=== PATIENT | female | born 1985 | race Hispanic/Latino ===

== ENCOUNTER 2016-07-10 10:14 | Emergency (ER) | payer OTHER ==
[2016-07-10 10:30] VITALS: BP 116/74; PULSE 82; O2SAT 99
[2016-07-10 10:43] VITALS: RESP 22; TEMP 98
[2016-07-10] MEDS ORDERED: Sodium Chloride 0.9% 500 ML IV ONE (10:58)
--- NOTE | 2016-07-10 11:09 | ED PDOC ---
HPI: General Adult Time Seen by Provider: 07/10/16 10:56 Chief Complaint (Nursing): Flu-like Symptoms History Per: Patient History/Exam Limitations: no limitations Onset/Duration Of Symptoms: Days (3) Additional Complaint(s): 30 yo F with history of depression presents to ED with complaints of myalgias, fever, lightheadedness x 3 days. Patient states was in usual state of health until Sunday. On Sunday, patient began with symptoms of myalgias and fever ( 101). Patient states treatment with alternating Tylenol and ibuprofen. Patient states improved on Sunday though still with tactile fevers. What prompted ED visit was feelings of lightheadedness this morning when arising from bed. Patient states associated symptoms include nasal congestion, intermittent dry cough due to post-nasal drip, and decrease in appetite. Denies nausea, vomiting , abdominal pain, vision changes, urinary symptoms, diarrhea, or sick contacts. Did not get flu vaccination this year. Works at medical facility with the elderly. LMP: 1 wk ago, normal. PMD: Other in [facility] Past Medical History Vital Signs: Last Vital Signs Temp 98.0 F 07/10/16 10:37 Pulse 82 07/10/16 10:37 Resp 22 07/10/16 10:37 BP 116/74 07/10/16 10:37 Pulse Ox 99 07/10/16 12:24 - Medical History PMH: Anxiety - Family History Family History: States: No Known Family Hx - Home Medications Home Medications: Ambulatory Orders Medication Instructions Recorded Citalopram Hydrobromide [Celexa] 10 mg PO DAILY 07/10/16 Oseltamivir [Tamiflu] 75 mg PO BID #10 cap 07/10/16 - Allergies Allergies/Adverse Reactions: Allergies Allergy/AdvReac Type Severity Reaction Status Date / Time No Known Allergies Allergy Verified 07/10/16 10:36 Review of Systems ROS Statement: Except As Marked, All Systems Reviewed And Found Negative Constitutional: Positive for: Fever, Malaise Cardiovascular: Negative for: Chest Pain Gastrointestinal: Negative for: Vomiting, Diarrhea Musculoskeletal: Positive for: Other (myalgias) Neurological: Positive for: Other (lightheadedness) Physical Exam - Reviewed Nursing Documentation Reviewed: Yes Vital Signs Reviewed: Yes - Physical Exam Appears: Positive for: Well, Non-toxic, No Acute Distress Head Exam: Positive for: ATRAUMATIC, NORMAL INSPECTION, NORMOCEPHALIC Skin: Positive for: Normal Color, Warm, Dry Eye Exam: Positive for: Normal appearance, EOMI ENT: Positive for: Normal ENT Inspection, Pharynx Is (clear), TM Is/Are (non- erythematous). Negative for: Pharyngeal Erythema, Tonsillar Exudate, Tonsillar Swelling Neck: Positive for: Normal, Painless ROM, Supple Cardiovascular/Chest: Positive for: Regular Rate, Rhythm Respiratory: Positive for: Normal Breath Sounds. Negative for: Rales, Wheezing Gastrointestinal/Abdominal: Positive for: Normal Exam, Bowel Sounds, Soft. Negative for: Tenderness Back: Positive for: Normal Inspection - Laboratory Results Urine POC: Negative - ECG O2 Sat by Pulse Oximetry: 99 - Progress ED Course And Treament: Time: 1100 Assessment: 30 yo female with myalgias, fever, nasal congestion x 3 days with lightheadedness this AM. Vitals stable at this time. DDx, includes but not limited to, viral syndrome, influenza, dehydration, Plan: Urine preg Urine dipstick Influenza A/B swab IVF via NS 500ml bolus Reassess Time: 1200 Patient re-evaluated, improved though with symptoms. Patient found to be Flu A positive. Will give Tamiflu 75mg x 1 now and Rx for 5 days BID. Patient to follow up with PCP this week. Disposition - Clinical Impression Clinical Impression: Influenza - Patient ED Disposition Is Patient to be Admitted: No Counseled Patient/Family Regarding: Studies Performed, Diagnosis, Need For Followup, Rx Given - Disposition Disposition: Routine/Home Disposition Time: 12:20 Condition: STABLE Prescriptions: Oseltamivir [Tamiflu] 75 mg PO BID #10 cap Instructions: Influenza (ED) Forms: [facility] ED School/Work Excuse
--- NOTE | 2016-07-10 12:24 | ED PDOC ---
- Laboratory Results Urine POC: Negative - ECG O2 Sat by Pulse Oximetry: 99 Disposition - Clinical Impression Clinical Impression: Influenza - POA Present On Arrival: None - Disposition Disposition: Routine/Home Disposition Time: 12:23 Condition: FAIR Prescriptions: Oseltamivir [Tamiflu] 75 mg PO BID #10 cap Instructions: Influenza (ED)
== END 2016-07-10 12:36 | disposition home or self-care (01) ==
LOC: H.ER 10:14
DX: J11.1 Influenza due to unidentified influenza virus with other respiratory manifestations (principal); R42 Dizziness and giddiness; R09.81 Nasal congestion; M79.1 Myalgia; F41.9 Anxiety disorder, unspecified